=== PATIENT | male | born 1970 | race African-American/Black ===

== ENCOUNTER 2017-05-12 21:10 | Inpatient (IN) ==
[2017-05-12] MEDS ORDERED: LORazepam 2 MG/1 ML VIAL IV STA (22:49)
[2017-05-12] MEDS ORDERED: SODIUM CHLORIDE 0.9% 1,000 ML IV STA (22:49)
[2017-05-12 22:57] LABS: Basophils % 0.7 % (0.0-0.8); Eosinophils # 0.3 10*3/uL (0.0-0.87); Eosinophils % 8.2 % (0.00-10.9); Hematocrit 40.8 VOL% (42.0-52.0); Immature Granulocytes % 0.7 %; Immature Granulocytes Absolute 0.03 #; Lymphocytes # 2.2 10*3/uL (1.4-4.0); Mean Corpuscular HGB Conc 34.3 GM/DL (32-36); Mean Corpuscular Hemoglobin 33 PG (27-34); Mean Corpuscular Volume 95.1 FL (87-102); Mean Platelet Volume 10.2 FL (9.6-12.0); Monocytes # 0.6 10*3/uL (0.11-0.8); Monocytes % 13.3 % (1.7-12.7); Neutrophils % 24.1 % (38.7-73.9); Platelet Count 159 T/CUMM (130-400); Red Blood Count 4.29 MC/CUMM (3.8-5.5); Red Cell Distribution Width 13.3 % (9.3-17.3); White Blood Count 4.1 T/CUMM (4-12)
[2017-05-12] MEDS ORDERED: DIPH/TET/ACEL PERT BOOSTER VACCINE 0.5 ML VIAL IM ONE (22:57)
--- NOTE | 2017-05-12 23:07 | Emergency Department Note ---
Kali Dalal Brittany, am scribing for, and in the presence of, Glynn Christina MD 23:01. Carri Dalal Charles R, MD, personally performed the services described in this documentation, ascribed by Akilah Bass in my presence, and it is both accurate and complete . Arrival - Arrival Chief Complaint: Seizure Stated Complaint: FALL/SEIZURE/LAC TO LEFT SIDE OF FACE ED Nursing Triage Note: C/O Seizure activity witnessed by family member- Pt hit head and side of face on road while he was walking. Pt denies having a history of seizure. Family member reported that he had a seizure yesterday and was taken to [place]. Pt has no memory of either event. +abrasions and swelling noted to left side of face. Attempted to place c-collar at time of triage, but pt refused stating he didn't need it. Pt and family deny drug or alcohol use. Mode of Arrival: Ambulatory Limitations: No Limitations Source: Patient, Family Time Seen by Provider: 05/12/17 21:48 - History of Present Illness HPI Narrative: This is a 46 y/o black male,who presents to the ED S/P seizure which occurred yesterday. He denies having a medical Hx of seizures. Pt's family reports he fell today at 2130. Pt complains of a CROSS and neck pain. He states he normally drinks 6-8 32 oz beers a day, but in the past 2 days he stopped drinking "cold turkey". He states he feels very shaky. Pt has no other complaints/pain in the ED at this time. Pt denies a PMHx. Pt denies a surgical Hx. Pt denies a family medical Hx. Pt is a current every day smoker, and drinks frequently, but reports he quit 2 days ago. Onset (ago): hour(s) (Happened yesterday) Consistency: constant Severity: moderate Allergies/Adverse Reactions: Allergies Allergy/AdvReac Type Severity Reaction Status Date / Time No Known Allergies Allergy Verified 09/11/15 11:34 Home Medications: Home Medications Medication Instructions Recorded Confirmed Type No Known Home Medications [No 05/12/17 05/12/17 History Known Home Medications] Review of System - Review of System 12 point system: reviewed and no additional remarkable complaints except as stated - Review of System Review of Systems: Fall Musculoskeletal: Present: neck pain Neurological: Present: headache, other (Seizure) Medical,Surgical,& Family Hx - Social History Smoking Status: Never smoker Frequency of Alcohol Use: None Type of Drug Use: None Exam Vital Signs: Vital Signs Temperature 98.2 F 05/12/17 21:16 Pulse Rate 89 05/12/17 21:16 Respiratory Rate 18 05/12/17 21:16 Blood Pressure 167/103 05/12/17 21:16 O2 Sat by Pulse Oximetry 99 05/12/17 21:16 - General General appearance: alert, in no apparent distress - Head Head exam: Present: other (Abrasions to the face. ) - Eye Eye exam: Present: other (Black eye, left eyelid swollen ecchymosis, left subconjunctival hemorrhage) - ENT ENT exam: Present: normal exam, normal oropharynx, mucous membranes moist, TM's normal bilaterally, normal external ear exam - Neck Neck exam: Present: normal inspection, full ROM, trachea midline. Absent: tenderness, meningismus, lymphadenopathy, thyromegaly - Chest Chest inspection: Present: normal inspection, symmetric chest wall rise. Absent : tenderness, rash, abscess - Respiratory Respiratory exam: Present: rhonchi, wheezes (Bilateral wheezing) - Cardiovascular Cardiovascular exam: Present: regular rate, normal rhythm, normal heart sounds. Absent: murmur, rubs, gallop, clicks, JVD - Abdominal Exam Abdominal exam: Present: soft, normal bowel sounds. Absent: distention, tenderness, guarding, rebound, rigidity, organomegaly - Rectal Exam Rectal exam: Present: deferred - Extremities Exam Extremities exam: Present: normal capillary refill, other (Clubbing noted to the fingers). Absent: pedal edema, joint swelling, calf tenderness - Back Exam Back exam: Present: normal inspection, full ROM. Absent: tenderness, muscle spasm, rashes - Neurological Exam Neurological exam: Present: alert, oriented X3, CN II-XII intact, motor sensory deficit (Fine shake to the hands ) - Psychiatric Psychiatric exam: Present: normal affect, normal mood. Absent: depressed, agitated, anxious, flat affect, manic - Skin Skin exam: Present: warm, dry, intact, normal color. Absent: rash, cyanosis, diaphoresis, erythema, pallor, mottled Course - Consultations Consultation #1: Consult Dr. Rodríguez for multiple facial fractures. He states that nothing to do now for next 10-14 days will follow as consult Time: 00:17 Consultation #2: Hospitalist will admit patient Time: 01:45 Results - Labs CBC & BMP: 05/12/17 21:35 05/12/17 21:35 Lab Results: I have reviewed the patients labs Labs: Laboratory Tests 05/12/17 05/12/17 05/12/17 21:35 21:35 21:35 WBC 4.1 RBC 4.29 Hgb 14.0 Hct 40.8 L MCV 95.1 MCH 33 MCHC 34.3 RDW 13.3 Plt Count 159 MPV 10.2 Neut % (Auto) 24.1 L Lymph % (Auto) 53.0 Sibley % (Auto) 13.3 H Eos % (Auto) 8.2 Baso % (Auto) 0.7 Neut # (Auto) 1.0 L Lymph # (Auto) 2.2 Sibley # (Auto) 0.6 Eos # (Auto) 0.3 Baso # (Auto) 0.0 Total Counted 100 Immature Gran % 0.7 Nucleated RBC % 0.0 Immature Gran # 0.03 Segmented Neutrophils 23 L Lymphocytes 51 Monocytes 10 Eosinophils 15 H Basophils 1.0 H Nucleated RBCs # 0.00 Atypical Lymphocytes Few Platelet Estimate Normal Pappenheimer Bodies Knitting Machine Mechanic Sodium 135 L Potassium 3.6 Chloride 98 Carbon Dioxide 29 Anion Gap 11.6 BUN 11 Creatinine 1.20 GFR Calculation 87 BUN/Creatinine Ratio 9.00 Glucose 92 Calculated Osmolality 268.1 L Calcium 8.7 Magnesium 1.8 Total Bilirubin 0.40 AST 114 H ALT 99 H Alkaline Phosphatase 95 Ammonia Total Protein 8.4 H Albumin 4.3 Globulin 4.1 H Albumin/Globulin Ratio 1.0 L Prolactin 43.2 Urine Color Urine Appearance Urine pH Ur Specific [place] Urine Protein Urine Glucose (UA) Urine Ketones Urine Blood Urine Nitrate Urine Bilirubin Urine Urobilinogen Urine Leukocytes Urine RBC Urine WBC Urine Mucus Ur Culture Indicated? Urine Opiates Screen Ur Barbiturates Screen Ur Phencyclidine Scrn U Amphetamine/Methamph U Benzodiazepines Scrn U Cocaine Metab Screen U Cannabinoids Screen Serum Alcohol < 15 L 05/12/17 05/12/17 05/12/17 22:40 22:40 23:27 WBC RBC Hgb Hct MCV MCH MCHC RDW Plt Count MPV Neut % (Auto) Lymph % (Auto) Sibley % (Auto) Eos % (Auto) Baso % (Auto) Neut # (Auto) Lymph # (Auto) Sibley # (Auto) Eos # (Auto) Baso # (Auto) Total Counted Immature Gran % Nucleated RBC % Immature Gran # Segmented Neutrophils Lymphocytes Monocytes Eosinophils Basophils Nucleated RBCs # Atypical Lymphocytes Platelet Estimate Pappenheimer Bodies Sodium Potassium Chloride Carbon Dioxide Anion Gap BUN Creatinine GFR Calculation BUN/Creatinine Ratio Glucose Calculated Osmolality Calcium Magnesium Total Bilirubin AST ALT Alkaline Phosphatase Ammonia 31 Total Protein Albumin Globulin Albumin/Globulin Ratio Prolactin Urine Color Straw Urine Appearance Clear Urine pH 6.0 Ur Specific [place] 1.009 Urine Protein 30 Urine Glucose (UA) Negative Urine Ketones Negative Urine Blood Small Urine Nitrate Negative Urine Bilirubin Negative Urine Urobilinogen < 2.0 H Urine Leukocytes Negative Urine RBC 1 Urine WBC <1 Urine Mucus Occasional Ur Culture Indicated? Not indicated Urine Opiates Screen Negative Ur Barbiturates Screen Negative Ur Phencyclidine Scrn Negative U Amphetamine/Methamph Negative U Benzodiazepines Scrn Negative U Cocaine Metab Screen Negative U Cannabinoids Screen Negative Serum Alcohol Critical Care Time Critical Care Time: Yes Total Critical Care Time: 60 Disposition Clinical Impression: Post alcohol withdrawal seizures, Multiple facial bone fractures, Alcoholism / alcohol abuse, Acute alcohol withdrawal syndrome Case discussed with: patient, patient's family Disposition: Still a Patient Condition: Guarded Time of Disposition: 01:45
[2017-05-12 23:10] LABS: Alanine Aminotransferase 99 U/L (16-61); Albumin 4.3 G/DL (3.4-5.0); Alkaline Phosphatase 95 U/L (45-117); Aspartate Amino Transferase 114 U/L (0-37); Blood Urea Nitrogen 11 MG/DL (7-18); Calcium 8.7 MG/DL (8.5-10.1); Glucose 92 MG/DL (74-106); Magnesium 1.8 MG/DL (1.8-2.4); Osmolality,Calculated 268.1 MOS/KG (273-304); Potassium 3.6 MMOL/L (3.5-5.1); Sodium 135 MMOL/L (136-145); Total Protein 8.4 G/DL (6.4-8.3)
[2017-05-12] MEDS ORDERED: LORazepam 2 MG/1 ML VIAL ONE (23:17)
[2017-05-12 23:37] LABS: Atypical Lymphocytes Few; Eosinophils 15 % (0-10); Lymphocytes 51 % (20-55); Platelet Estimate Normal; Segmented Neutrophils 23 % (50-85); Total Cells Counted 100
[2017-05-12 23:44] LABS: Apearance,Urine CLEAR (Clear); Bilirubin,Urine Negative (Negative); Blood, Urine Small mg/dL (Negative); Glucose,Urine (UA) Negative (Negative); Ketones,Urine Negative (Negative); Mucus,Urine Occasional /LPF (Occasional); Nitrite,Urine Negative (Negative); Protein,Urine 30 MG/DL; RBC,Urine 1 /HPF (0-4); Urine Color Straw (Yellow); Urine Specific Gravity 1.009 (1.001-1.035); Urine Urobilinogen < 2.0 EU/DL (0.2-1.0); WBC,Urine <1 /HPF (0-6)
[2017-05-12 23:53] LABS: Barbiturates Screen,Urine Negative (Negative); Benzodiazepines Screen,Urine Negative (Negative); Cannabinoid Screen,Urine Negative (Negative); Opiate Screen,Urine Negative (Negative); Phencyclidine Screen,Urine Negative (Negative)
[2017-05-13] MEDS ORDERED: DIPH/TET/ACEL PERT BOOSTER VACCINE 0.5 ML VIAL IM ONE (00:18)
[2017-05-13] MEDS ORDERED: LORazepam 2 MG/1 ML VIAL ONE (01:55)
[2017-05-13] MEDS ORDERED: LORazepam 2 MG/1 ML VIAL IV STA (01:59)
[2017-05-13] MEDS ORDERED: MORPHINE 2 MG/1 ML SYRINGE IV PRN (03:18)
[2017-05-13] MEDS ORDERED: BISACODYL 5 MG TABLET PO PRN (03:18)
[2017-05-13] MEDS ORDERED: ONDANSETRON 4 MG/2 ML VIAL IV PRN (03:18)
[2017-05-13] MEDS ORDERED: ALBUTEROL/IPRATROPIUM 3 ML NEB RESP TX PRN (03:18)
[2017-05-13] MEDS ORDERED: ACETAMINOPHEN 325 MG TABLET PO PRN (03:18)
--- NOTE | 2017-05-13 03:24 | Hospitalist History & Physical ---
Assessment and Plan - Time spent with patient Time spent discussing smoking cessation with patient: 3 to 10 minutes (1) DTs (delirium tremens) Status: Acute Current Visit: Yes (2) Fracture of other specified skull and facial bones, left side, initial encounter for closed fracture Status: Acute Current Visit: Yes (3) Seizure Status: Acute Current Visit: Yes (4) Uncontrolled hypertension Status: Acute Current Visit: Yes (5) Alcoholism /alcohol abuse Status: Chronic Assessment and plan: Plan: We will monitor in ICU, benzodiazepines as needed for alcohol withdrawal Blood pressure control Supportive care for pain with his facial fractures, ENT to evaluate Current Visit: Yes History of Present Illness Chief complaint: Witnessed seizure and fall History of present illness: Mr. Gonzalez is a 46 year old male with high blood pressure, long-standing alcohol abuse who quit drinking cold turkey on Saturday. Since then he has been tremulous and had a witnessed seizure around 9:30 PM and fell to the ground hitting the left side of his face resulting in multiple facial fractures. ER physician discussed the case with ENT. The patient reports heavy consumption of beer and occasional liquor. He does have left facial pain he rates a 7 out of 10 at worst, relieved with pain medication in the ER. He has not seized in the emergency room. He will be admitted to the ICU for alcohol withdrawal/DTs. ENT will evaluate his facial fractures Home Medications Medication Instructions Recorded Confirmed Type No Known Home Medications [No 05/12/17 05/12/17 History Known Home Medications] Allergies Allergy/AdvReac Type Severity Reaction Status Date / Time No Known Allergies Allergy Verified 09/11/15 11:34 Medical,Surgical,& Family Hx - Medical History Cardio: History of: Hypertension Endocrine: No history of: Diabetes Mellitus (NIDDM) Respiratory: No history of: COPD - Surgical History Additional Surgical History: Denies previous surgery - Family History Family History: Reports;: Family Hypertension - Social History Smoking Status: Current every day smoker Have you smoked in the last 12 months: Yes Time spent discussing smoking cessation with patient: 3 to 10 minutes Frequency of Alcohol Use: Frequently (six to eight 32 ounce beers per day with occasional liquor) Type of Drug Use: None Marital Status: Unknown Functional capacity: independent ambulation Review of systems: A 12 point review of systems is negative except as specified in the HPI Exam - Constitutional Vitals: Period Temp Pulse Resp BP Sys/Boudreaux Pulse Ox Last 24 Hr 98.2 F 89 18 167/103 99 Exam: EXAM: CONSTITUTIONAL: non toxic, NAD HEENT: NC, large ecchymosis and swelling over the left eye and periorbital excoriation, subconjunctival hemorrhage, tenderness to palpation, OP benign, EVELIN, EOMI CV: RRR no m/g/r RESP: clear B/L, no w/r/r GI: abd soft, NT, ND, +bowel sounds INTEGUMENTARY: no lesions or rash EXTREMITIES: no c/c/e NEURO: no focal deficits PSYCH: Awake, alert, cooperative Results - Labs CBC & BMP: 05/12/17 21:35 05/12/17 21:35 Lab Results: I have reviewed the past 24 hour labs - EKG EKG shows: sinus rhythm - Diagnostic Findings Procedure: Chest x-ray: image reviewed by me, CT Abdomen and Pelvis: image reviewed by me, report reviewed by me, CT - chest: image reviewed by me, report reviewed by me, CT: image reviewed by me, report reviewed by me
[2017-05-13] MEDS ORDERED: SODIUM CHLORIDE 0.45% 1,000 ML IV SCH (03:30)
[2017-05-13] MEDS ORDERED: THIAMINE INJ 100 MG, FOLIC ACID INJ 1 MG, MAGNESIUM SULF INJ 2 GM, MULTIVITAMIN INJ 10 ... IV SCH (03:30)
--- NOTE | 2017-05-13 04:56 | EKG Report ---
Stationary ECG Study [facility] ER Test Date: 05/12/2017 11:46:42 PM Pat Name: BRIANNE BOTELLO Department: Room: 116 Gender: M Box Storage Worker: : 1970 Requested by: Glynn Sam Order Number: [id number] Reading MD: LORIE MOHR Intervals [place] Rate: 77 P: 47 W[place]: 169 QRS: 51 QRSD: 94 T: 50 QT: 389 QTc: 421 Interpretive Statements SINUS RHYTHM VOLTAGE CRITERIA FOR LVH, CONSIDER NORMAL VARIANT Electronically Signed On 05-13-17 10:35:36 CDT by LORIE MOHR [email or web address]
[2017-05-13 05:49] LABS: Basophils % 0.8 % (0.0-0.8); Eosinophils # 0.1 10*3/uL (0.0-0.87); Eosinophils % 3.7 % (0.00-10.9); Hematocrit 40.9 VOL% (42.0-52.0); Hemoglobin 14.6 GM/DL (14.0-18.0); Immature Granulocytes % 0.5 %; Immature Granulocytes Absolute 0.02 #; Lymphocytes # 1.2 10*3/uL (1.4-4.0); Mean Corpuscular HGB Conc 35.7 GM/DL (32-36); Mean Corpuscular Hemoglobin 33 PG (27-34); Mean Corpuscular Volume 92.7 FL (87-102); Monocytes # 0.4 10*3/uL (0.11-0.8); Monocytes % 10.6 % (1.7-12.7); Neutrophils % 52.4 % (38.7-73.9); Platelet Count 147 T/CUMM (130-400); Red Blood Count 4.41 MC/CUMM (3.8-5.5); Red Cell Distribution Width 13.2 % (9.3-17.3); White Blood Count 3.8 T/CUMM (4-12)
[2017-05-13] MEDS ORDERED: 1: THIAMINE INJ 100 MG, FOLIC ACID INJ 1 MG, MAGNESIUM SULF INJ 2 GM, MULTIVITAMIN INJ 1 IV SCH (06:00)
[2017-05-13] MEDS: chlordiazePOXIDE 25 MG CAPSULE PO SCH ×4 (06:07→23:15)
[2017-05-13 06:16] LABS: Calcium 9.1 MG/DL (8.5-10.1); Magnesium 1.9 MG/DL (1.8-2.4); Osmolality,Calculated 266.1 MOS/KG (273-304); Potassium 3.8 MMOL/L (3.5-5.1)
--- NOTE | 2017-05-13 06:20 | CT Report ---
Exam: CT scan of brain without contrast Date: 05/12/2017 Indication: Seizure activity Comparison: None Patient's classification: Emergency department Technical: Images were obtained from the skull base to the vertex without the use of intravenous contrast. Dose reduction was performed with decreasing kv and mA and automated exposure Total DLP: 1639.6 mGy*cm Findings: The study was initially reviewed by [facility]. The brainstem, cerebellum and cerebral hemispheres are intact. The paranasal sinuses are demonstrated with traumatic injury over the left frontal region with air-fluid level in the left maxillary sinus and fractures of the left maxillary antrum with soft tissue contusion also noted The ventricles are located in normal position without midline shift or mass effect. The globes and sella are intact. The calvarium is unremarkable. Impression: 1. No acute hemorrhage infarction or mass effect intracranially. 2. Soft tissue injury over the left orbital region and fractures of the left maxillary antrum with fluid in the left maxillary sinus discussed separately with facial bone series PROCEDURE INTERPRETED AT [facility] DEPARTMENT OF RADIOLOGY Final Report Signed by: Dr. Clem Ugarte
--- NOTE | 2017-05-13 06:30 | CT Report ---
Exam:CT cervical spine wo con Date:05/12/2017 10:49 PM Indication: Fall neck injury pain Comparison: None Total DLP: 320.3 mGy*cm Technical: Sagittal axial and coronal imaging was available for review with out the use of intravenous contrast. Dose reduction was performed with decreasing kv and mA and automated exposure Findings: The study was initially reviewed by [facility]. 7 cervical vertebral bodies are demonstrated. Examination reveals attempted bridging syndesmophyte present C4-5 C5-6 with anterior and posterior spurring present. Disc space narrowing is present. Spurring is also present at C6-7 posteriorly. The vertebral body heights,, lamina, pedicles, and posterior elements are intact. The arch at C1 and C2 and odontoid process are intact. The neural foramina canals are unremarkable. No soft tissue abnormalities are demonstrated. Impression 1. No fracture or dislocation. 2. Degenerative spondylosis change of the cervical spine at C4-5 C5-6 and C6-7. PROCEDURE INTERPRETED AT [facility] DEPARTMENT OF RADIOLOGY Final Report Signed by: Dr. Clem Ugarte
--- NOTE | 2017-05-13 06:36 | CT Report ---
Exam: CT facial bones wo con Date: 05/12/2017 10:49 PM Comparison: None Indication: Status post fall facial trauma pain Total DLP: 1639.6 mGy*cm Technical: axial, sagittal and coronal images were obtained through the maxillofacial sinuses and bones without intravenous contrast Dose reduction was performed with decreasing kv and mA and automated exposure Findings: The study was initially reviewed by [facility]. The frontal sinuses are unremarkable. The maxillary sinuses are demonstrated with subtotal opacification left maxillary antrum. The right maxillary sinus is clear. Ethmoid sinuses are demonstrated with inflammation present in the left ethmoid air cells the right ethmoid air cells are clear The sphenoid sinuses are unremarkable. The ostiomeatal complex is narrowed on the left. The right ostiomeatal complex is patent. The nasal septum is midline without spur. The mastoid sinuses are unremarkable. The facial bones are demonstrated with a comminuted fracture posterior lateral wall of the left maxillary antrum with fracture of the anterior wall of left maxillary sinus. The medial wall the left maxillary sinus appears to have a small buckle fractures well. There is a fracture of the floor the left orbit with a small amount of air and buckle fracture extending into the posterior aspect of the floor of the orbit. The lateral wall the orbit is fractured with depression and some comminution. The superior wall the orbit appears intact. The medial wall appears intact. The exam reveals a buckle fracture of the left zygomatic arch present. The nasal bones are intact. Extensive soft tissue swelling over the left malar eminence present. Mild proptosis left orbit present. The right globe is unremarkable. No intraconal abnormalities present. Small amount air over the left lateral extraconal space Impression: 1. Soft tissue swelling over the left malar eminence 2. Multiple facial fractures involving the left zygomatic arch the anterior and posterior clements of the left maxillary sinus the floor the left orbit and the lateral wall of the left orbit. 3. Subtotal opacification left maxillary antrum and left ethmoid air cells PROCEDURE INTERPRETED AT [facility] DEPARTMENT OF RADIOLOGY Final Report Signed by: Dr. Clem Ugarte
--- NOTE | 2017-05-13 06:42 | CT Report ---
Exam:CT chest w con Date:05/13/2017 12:17 AM Indication: Chest pain trauma Comparison: None Technical: Images were obtained from the thoracic inlet through the lung bases with 100 cc of contrast. Axial sagittal and coronal imaging was available for review. Dose reduction was performed with decreasing kv and mA and automated exposure Total DLP: 628.8 mGy*cm Findings: The study was initially reviewed by [facility]. The thyroid gland, trachea and esophagus are unremarkable. The anterior middle and posterior mediastinum are intact. The heart and pulmonary artery are unremarkable. Aorta is unremarkable. The lungs are clear without infiltrates or effusions. Minimal basilar atelectatic changes are present. Right greater than left The bony structures are unremarkable. Impression: 1. Minimal basilar atelectatic change present. Exam: CT abdomen pelvis w con Date: 05/13/2017 12:17 AM Comparison: None Indication: Trauma pain Total DLP: As above mGy*cm Technical: Images were obtained from the lung bases to the iliac crest continuation through the pelvis with 100 cc of Omnipaque 350 with axial sagittal coronal imaging available for review. Dose reduction was performed with decreasing kv and mA and automated exposure Findings: Liver and Spleen: Minimal fatty infiltration of liver present spleen is unremarkable. Gallbladder and Pancreas: Gallbladder is contracted. The pancreas is unremarkable. Adrenals: Unremarkable Kidneys: Both kidneys are equally perfused and demonstrate no evidence for obstructive uropathy. Stomach: Incomplete distended with air-fluid and debris Retroperitoneum: No enlarged lymph nodes. Aorta and IVC: Minimal atherosclerotic plaque in the abdominal aorta and iliac vessels. No aneurysm noted. IVC is patent Bowel and Mesentery: There is no evidence for bowel obstruction. Minimal diverticular changes without diverticulitis or free fluid. No obvious evidence of appendicitis or mass lesions Pelvis: Bladder: Incompletely distended with fluid and contrast Minimal bladder wall thickening on the initial series Fluid: None Lymph nodes: No enlarged lymph nodes. Pelvic organs: Unremarkable Osseous structures: No suspicious appearing osseous abnormalities noted. Disc space narrowing at L5-S1. Impression: 1. No acute solid or visceral organ injury. 2. Minimal diverticulosis without diverticulitis 3. Minimal bladder wall thickening PROCEDURE INTERPRETED AT [facility] DEPARTMENT OF RADIOLOGY Final Report Signed by: Dr. Clem Ugarte
[2017-05-13] MEDS: hydrALAZINE 20 MG/1 ML VIAL IV PRN ×2 (06:57→13:10)
[2017-05-13] MEDS: PANTOPRAZOLE 40 MG TABLET PO SCH (08:35)
--- NOTE | 2017-05-13 17:23 | Consultation ---
Assessment and Plan - Time spent with patient Time spent with patient: Less than 30 minutes (1) Closed tripod fracture of zygomaticomaxillary complex with routine healing Status: Acute Assessment and plan: I recommend with the amount of swelling and the minimally displaced to nondisplaced fractures continued observation and possible secondary healing. I note no entrapment or functional impingement because of the fracture. He is more than welcome to follow-up as an outpatient and will continue to monitor this fracture but he most likely will not need open reduction internal fixation at this time. Thank you very much for this consultation I will remain available if there is any additional questions or concern Current Visit: Yes (2) Periorbital swelling Status: Acute Current Visit: Yes (3) Facial contusion Status: Acute Current Visit: Yes History of Present Illness - Data of Consult Patient: new to practice Consult date: 05/13/17 Requesting Physician: Alex Lindsay - Consult Narrative Reason for consult: Left facial fracture History of present illness: Mr. Gonzalez is a 46 year old male with left facial fracture consistent with a tripod fracture of unknown etiology/mechanism of action patient does report a seizure which could potentially describe the fall and subsequent fracture. Patient notes no double vision or difficulties. Does note some mild pain with biting down consistent with the fracture. Patient reports no instability of the midface or additional problems. CC: Alex Lindsay MD - Home Medications and Allergies Home Medications: Home Medications Medication Instructions Recorded Confirmed Type No Known Home Medications [No 05/12/17 05/12/17 History Known Home Medications] Allergies/Adverse Reactions: Allergies Allergy/AdvReac Type Severity Reaction Status Date / Time No Known Allergies Allergy Verified 09/11/15 11:34 12 point system: reviewed and no additional remarkable complaints except as stated Medical,Surgical,& Family Hx - Medical History Cardio: History of: Hypertension Neurology: No history of: Seizures Endocrine: No history of: Diabetes Mellitus (NIDDM) Respiratory: No history of: COPD - Family History Family History: Reports;: Family Hypertension - Social History Smoking Status: Current every day smoker Frequency of Alcohol Use: Frequently (six to eight 32 ounce beers per day with occasional liquor) Type of Drug Use: None Exam - Constitutional Vitals: Period Temp Pulse Resp BP Sys/Boudreaux Pulse Ox Last 24 Hr 98.2 F-99.6 F 76-102 10- 139-173/90-108 97-99 General appearance: normal weight, no acute distress - Head Head exam: Present: abrasion, contusion, hematoma - Eye Eye exam: Present: EOMI, periorbital swelling - ENT ENT exam: Present: normal exam, normal external ear exam, normal oropharynx - Expanded ENT Exam Ear exam: Present: TM's normal bilaterally Mouth exam: Present: moist Throat exam: Present: normal inspection - Neck Neck exam: Present: normal inspection - Respiratory Respiratory exam: Present: other (No shortness of breath or difficulty breathing ) - GI/Abdominal GI/Abdominal exam: Present: soft - Extremities Exam Extremities exam: Present: normal inspection, normal capillary refill - Neurological Exam Neurological exam: Present: alert, oriented X3, CN II-XII intact - Psychiatric Psychiatric exam: Present: normal affect, normal mood - Skin Skin exam: Present: normal color, warm Results - Labs CBC & BMP: 05/13/17 05:22 05/13/17 05:22 Lab Results: I have reviewed the past 24 hour labs - Diagnostic Findings Procedure: CT: pending, image reviewed by me, report reviewed by me (Left facial fractures consistent with a possible tripod fracture mildly displaced and nondisplaced fractures I agree with radiology interpretation)
[2017-05-13] MEDS: PROMETHAZINE 25 MG/1 ML VIAL IM PRN (20:01)
[2017-05-13] MEDS: LORazepam 2 MG/1 ML VIAL IV PRN (21:14)
[2017-05-13] MEDS ORDERED: LORazepam 2 MG/1 ML VIAL IV ONE ×2 (22:04→23:45)
[2017-05-13] MEDS: ZIPRASIDONE 20 MG/1 ML VIAL IM PRN (23:20)
[2017-05-14] MEDS: LORazepam 2 MG/1 ML VIAL IV PRN ×5 (01:35→23:16)
[2017-05-14 03:26] LABS: Apearance,Urine Slightly Hazy (Clear); Bilirubin,Urine Negative (Negative); Blood, Urine Moderate mg/dL (Negative); Glucose,Urine (UA) Negative (Negative); Ketones,Urine Negative (Negative); Nitrite,Urine Negative (Negative); Protein,Urine Negative; RBC,Urine 1 /HPF (0-4); Squamous Epithelial Cell,Urine Occasional /HPF (0-10); Urine Color Yellow (Yellow); Urine Specific Gravity 1.006 (1.001-1.035); Urine Urobilinogen < 2.0 EU/DL (0.2-1.0); WBC,Urine <1 /HPF (0-6)
[2017-05-14] MEDS: ZIPRASIDONE 20 MG/1 ML VIAL IM PRN ×2 (04:20→21:57)
[2017-05-14] MEDS: chlordiazePOXIDE 25 MG CAPSULE PO SCH ×5 (06:11→23:31)
[2017-05-14] MEDS: THIAMINE INJ 100 MG, FOLIC ACID INJ 1 MG, MAGNESIUM SULF INJ 2 GM, MULTIVITAMIN INJ 10 ... IV SCH (08:21)
[2017-05-14] MEDS: PANTOPRAZOLE 40 MG TABLET PO SCH (10:25)
--- NOTE | 2017-05-14 11:10 | Hospitalist Progress Note ---
Assessment and Plan (1) DTs (delirium tremens) Status: Acute Assessment and plan: The patient will continue supportive care and intensive care unit with increased dose of benzodiazepine to reduce tremulousness. Will reevaluate tomorrow and consider transfer to the floor if tremulousness has improved. I coordinated care with Dr. Quiroga today. The patient does not require facial surgery. Current Visit: Yes (2) Fracture of other specified skull and facial bones, left side, initial encounter for closed fracture Status: Acute Current Visit: Yes Hospitalist: Subjective Interval history: The patient had worsening symptoms of alcohol withdrawal last night and required progressive larger doses of benzodiazepine to reduce his tremulousness. The patient is resting quietly at present appears appropriately sedated. Exam - Constitutional Vitals: Period Temp Pulse Resp BP Sys/[place] Pulse Ox Last 24 Hr 98 F-99.2 F 85-155 10- 103-163/73-105 95-129 Exam: Constitutional System: Mild distress. No tremulousness. Sleeping Head: The patient has swelling and tenderness of the left face consistent with facial fracture Ears, Nose and Throat System: No evidence of Otitis or Mastoiditis. No epistaxis or discharge Eyes System: Pupils equal, round, and reactive. Extraocular muscles intact. Neck: Supple, without adenopathy, No jugular venous distention. No thyromegaly , neck mass, or prior surgery apparent. Respiratory System: Chest clear to auscultation. Cardiovascular System: Heart with regular rate and rhythm. No murmur. - Expanded ENT Exam Mouth exam: Present: moist Throat exam: Present: normal inspection Results - Labs CBC & BMP: 05/13/17 05:22 05/13/17 05:22 Lab Results: I have reviewed the past 24 hour labs
[2017-05-14] MEDS: hydrALAZINE 20 MG/1 ML VIAL IV PRN (18:10)
[2017-05-15] MEDS: PROMETHAZINE 25 MG/1 ML VIAL IM PRN (01:50)
[2017-05-15] MEDS: LORazepam 2 MG/1 ML VIAL IV PRN ×5 (01:50→17:16)
[2017-05-15] MEDS ORDERED: DIAZEPAM 5 MG TABLET PO ONE (01:53)
[2017-05-15] MEDS ORDERED: SODIUM CHLORIDE 0.9% 1,000 ML IV SCH ×2 (02:00→02:30)
[2017-05-15] MEDS: CLINDAMYCIN 150 MG CAPSULE PO SCH ×4 (02:18→23:20)
[2017-05-15 04:49] LABS: Calcium 8.8 MG/DL (8.5-10.1); Magnesium 2.4 MG/DL (1.8-2.4); Osmolality,Calculated 273.5 MOS/KG (273-304); Potassium 3.5 MMOL/L (3.5-5.1)
[2017-05-15] MEDS: chlordiazePOXIDE 25 MG CAPSULE PO SCH ×4 (06:03→23:21)
[2017-05-15] MEDS: ZIPRASIDONE 20 MG/1 ML VIAL IM PRN ×3 (06:59→20:31)
[2017-05-15] MEDS: PANTOPRAZOLE 40 MG TABLET PO SCH (09:02)
[2017-05-15] MEDS: THIAMINE INJ 100 MG, FOLIC ACID INJ 1 MG, MAGNESIUM SULF INJ 2 GM, MULTIVITAMIN INJ 10 ... IV SCH (09:03)
--- NOTE | 2017-05-15 09:33 | Hospitalist Progress Note ---
Assessment and Plan (1) DTs (delirium tremens) Status: Acute Assessment and plan: The patient will continue supportive care and intensive care unit with increased dose of benzodiazepine to reduce tremulousness. The patient is presently without tremulousness and ready for transfer to the floor. Current Visit: Yes (2) Fracture of other specified skull and facial bones, left side, initial encounter for closed fracture Status: Acute Current Visit: Yes Hospitalist: Subjective Interval history: The patient was admitted to the hospital after sustaining fracture to the left zygoma. The patient was evaluated by Dr. luo but no surgery was recommended. The patient is a daily drinker at home. After admission to the hospital the patient had onset of delirium tremens. The patient is improving with benzodiazepine sedation. The patient is now ready for transfer to the floor. Exam - Constitutional Vitals: Period Temp Pulse Resp BP Sys/[place] Pulse Ox Last 24 Hr 98 F-101 F 89-150 15-28 120-180/86-115 95-100 Exam: Constitutional System: Mild distress. No tremulousness. Sleeping Head: The patient has swelling and tenderness of the left face consistent with facial fracture Ears, Nose and Throat System: No evidence of Otitis or Mastoiditis. No epistaxis or discharge Eyes System: Pupils equal, round, and reactive. Extraocular muscles intact. Neck: Supple, without adenopathy, No jugular venous distention. No thyromegaly , neck mass, or prior surgery apparent. Respiratory System: Chest clear to auscultation. Cardiovascular System: Heart with regular rate and rhythm. No murmur. - Expanded ENT Exam Mouth exam: Present: moist Throat exam: Present: normal inspection Results - Labs CBC & BMP: 05/13/17 05:22 05/15/17 03:44 Lab Results: I have reviewed the past 24 hour labs
[2017-05-15] MEDS: hydrALAZINE 20 MG/1 ML VIAL IV PRN (10:43)
[2017-05-16] MEDS: LORazepam 2 MG/1 ML VIAL IV PRN ×2 (01:48→08:17)
[2017-05-16] MEDS: CLINDAMYCIN 150 MG CAPSULE PO SCH ×4 (03:47→20:52)
[2017-05-16] MEDS: ZIPRASIDONE 20 MG/1 ML VIAL IM PRN (04:45)
[2017-05-16 05:38] LABS: Basophils % 0.2 % (0.0-0.8); Eosinophils # 0.4 10*3/uL (0.0-0.87); Eosinophils % 4.7 % (0.00-10.9); Hematocrit 38.7 VOL% (42.0-52.0); Hemoglobin 13.1 GM/DL (14.0-18.0); Immature Granulocytes % 0.7 %; Immature Granulocytes Absolute 0.06 #; Lymphocytes # 1.6 10*3/uL (1.4-4.0); Lymphocytes % 19.8 % (21.2-54.2); Mean Corpuscular HGB Conc 33.9 GM/DL (32-36); Mean Corpuscular Hemoglobin 32 PG (27-34); Mean Corpuscular Volume 94.9 FL (87-102); Mean Platelet Volume 10.9 FL (9.6-12.0); Monocytes # 0.7 10*3/uL (0.11-0.8); Monocytes % 8.6 % (1.7-12.7); Neutrophils # 5.4 10*3/uL (1.4-7.4); Platelet Count 132 T/CUMM (130-400); Red Blood Count 4.08 MC/CUMM (3.8-5.5); Red Cell Distribution Width 13.5 % (9.3-17.3); White Blood Count 8.1 T/CUMM (4-12)
[2017-05-16 06:05] LABS: Magnesium 2.4 MG/DL (1.8-2.4); Osmolality,Calculated 278.1 MOS/KG (273-304); Potassium 3.7 MMOL/L (3.5-5.1)
[2017-05-16] MEDS: chlordiazePOXIDE 25 MG CAPSULE PO SCH ×3 (08:16→17:12)
[2017-05-16] MEDS: PANTOPRAZOLE 40 MG TABLET PO SCH (08:17)
[2017-05-16] MEDS: THIAMINE INJ 100 MG, FOLIC ACID INJ 1 MG, MAGNESIUM SULF INJ 2 GM, MULTIVITAMIN INJ 10 ... IV SCH (09:33)
--- NOTE | 2017-05-16 10:17 | Hospitalist Progress Note ---
Assessment and Plan (1) Closed tripod fracture of zygomaticomaxillary complex with routine healing Status: Acute Current Visit: Yes (2) DTs (delirium tremens) Status: Acute Assessment and plan: CIWA precautions remain in progress; no seizure activity noted thus far. We will monitor closely Current Visit: Yes (3) Uncontrolled hypertension Status: Acute Assessment and plan: Blood pressures are stable; continue current regimen as ordered. Current Visit: Yes Hospitalist: Subjective Interval history: Patient seen and examined; no significant overnight events. Chart reviewed. Exam - Constitutional Vitals: Period Temp Pulse Resp BP Sys/Boudreaux Pulse Ox Last 24 Hr 97.6 F-99.1 F 91-117 16-22 123-184/70-100 96-100 General appearance: normal weight, no acute distress - Head Head exam: Present: normal inspection, normocephalic - Eye Eye exam: Present: EOMI, periorbital swelling (Left periorbital swelling) Pupils: Present: EVELIN, normal accommodation - ENT ENT exam: Present: normal exam, normal external ear exam, normal oropharynx - Expanded ENT Exam Ear exam: Present: TM's normal bilaterally Mouth exam: Present: moist Throat exam: Present: normal inspection - Neck Neck exam: Present: normal inspection. Absent: lymphadenopathy, meningismus, tenderness, thyromegaly - Respiratory Respiratory exam: Present: clear to auscultation bilaterally. Absent: rales, rhonchi, stridor, wheezes - Cardiovascular Cardiovascular exam: Present: regular rate and rhythm. Absent: carotid bruit, diastolic murmur, gallop, JVD, rubs, systolic murmur - GI/Abdominal GI/Abdominal exam: Present: normal bowel sounds, soft - Extremities Exam Extremities exam: Present: normal inspection, normal capillary refill, full ROM. Absent: edema - Back Exam Back exam: Present: normal inspection - Neurological Exam Neurological exam: Present: alert, oriented X3, CN II-XII intact - Psychiatric Psychiatric exam: Present: normal affect, normal mood - Skin Skin exam: Present: normal color, warm, dry Results - Labs CBC & BMP: 05/16/17 05:01 05/16/17 05:01 Lab Results: I have reviewed the past 24 hour labs
[2017-05-17] MEDS: chlordiazePOXIDE 25 MG CAPSULE PO SCH ×2 (00:20→05:45)
[2017-05-17] MEDS: CLINDAMYCIN 150 MG CAPSULE PO SCH ×2 (05:45→09:30)
[2017-05-17 06:36] LABS: Basophils % 0.3 % (0.0-0.8); Eosinophils # 0.4 10*3/uL (0.0-0.87); Eosinophils % 5.6 % (0.00-10.9); Hematocrit 35.8 VOL% (42.0-52.0); Hemoglobin 12.2 GM/DL (14.0-18.0); Immature Granulocytes Absolute 0.07 #; Lymphocytes # 2.1 10*3/uL (1.4-4.0); Lymphocytes % 30.2 % (21.2-54.2); Mean Corpuscular HGB Conc 34.1 GM/DL (32-36); Mean Corpuscular Hemoglobin 32 PG (27-34); Mean Corpuscular Volume 94.5 FL (87-102); Mean Platelet Volume 10.6 FL (9.6-12.0); Monocytes # 0.8 10*3/uL (0.11-0.8); Monocytes % 11.5 % (1.7-12.7); Neutrophils # 3.6 10*3/uL (1.4-7.4); Neutrophils % 51.4 % (38.7-73.9); Platelet Count 152 T/CUMM (130-400); Red Blood Count 3.79 MC/CUMM (3.8-5.5); Red Cell Distribution Width 13.3 % (9.3-17.3)
[2017-05-17 07:11] LABS: Albumin 3.3 G/DL (3.4-5.0); Bilirubin,Total 0.8 MG/DL (0.2-1.0); Calcium 8.4 MG/DL (8.5-10.1); Magnesium 2.3 MG/DL (1.8-2.4); Osmolality,Calculated 279.3 MOS/KG (273-304); Phosphorous 2.8 MG/DL (2.5-4.9); Potassium 3.4 MMOL/L (3.5-5.1); Total Protein 6.6 G/DL (6.4-8.3)
[2017-05-17] MEDS ORDERED: POTASSIUM CHLORIDE RIDER 10 MEQ in PREMIX 1 EACH IV PRN (07:55)
[2017-05-17 08:30] VITALS: BP 127/81
[2017-05-17] MEDS ORDERED: POTASSIUM CHLORIDE 20 MEQ TABLET PO ONE (08:36)
--- NOTE | 2017-05-17 08:43 | Discharge Summary ---
<Betsy Mccarthyda - Last Filed: 05/17/17 08:28> Hospital Course - Hospital Course Hospital Course: This is a very poor and unfortunate 46-year-old male that presented to the ED at [facility] on May 12, 2017 for the evaluation of seizure activity. The patient has a medical history significant for alcohol addiction and nicotine addiction. At the time of presentation, the patient reported no surgical history. At the time of ED presentation, the patient was grossly altered. His family was present at bedside; they served as historians. The family reported the onset of the above symptoms 1 day prior to presentation. Apparently, the family reported that the patient is a heavy drinker and recently stopped "cold turkey" 2 days prior to presentation. They reported that the patient drinks constantly daily normally 6-8 32 ounce beers daily. In addition, the family reported that the patient had a seizure the day prior to presentation, he presented to the ED at [place]. He was evaluated and subsequently discharged. They report today that the patient had another episode of seizure activity in which he fell striking his head and face on the ground. They became alarmed and brought the patient to the ED for further evaluation. At the time of ED presentation, the patient was unaware of the presenting events. He was able to answer simple questions, however he denied a history of seizures. He was grossly hypertensive with a blood pressure noted at 167/103. He had multiple abrasions to his face and profound ecchymosis and subconjunctival hemorrhage to his left eye. CT face reported soft tissue swelling over the left malar eminence, multiple facial fractures involving the left zygomatic arch the left anterior and posterior clements of the left maxillary sinus the floor of the left orbit and the lateral wall of the left orbit and subtotal opacification left maxillary antrum and left ethmoid air cells. CT head reported no acute hemorrhage infarction or mass-effect intracranially. CT abdomen and pelvis reported minimal basilar atelectatic changes. The patient was subsequently admitted to the hospitalist services for continuation of care. The patient was obviously displaying signs and symptoms of acute alcohol withdrawal and was placed in critical care for close observation. The patient was admitted to critical care. Alcohol withdrawal protocol was initiated. Otolaryngology consultation was requested. The patient was evaluated; however no need for immediate surgical intervention was deemed necessary. The patient was placed on empiric antibiotics. Benzodiazepines, vitamin replacement, antihypertensive agent, and anti-seizure agents were initiated. The patient's condition slowly improved. On May 15, 2017, the patient was transferred to the general medical surgical floor for continuation of care. The patient's condition has remained stable. He has experienced no significant overnight events. Today, we feel that he is indeed appropriate for discharge to follow-up with his primary care physician and otolaryngology as directed. We have spoke to patient in great detail regarding the need to refrain from alcohol use. The acknowledges understanding of the instructions and reports that he wants to stop eventually. On the date of discharge, the chest is clear and heart has regular rate and rhythm. 34 minutes were required for evaluating the patient and preparing the discharge documentation. Diagnosis - Discharge Diagnosis (1) Closed tripod fracture of zygomaticomaxillary complex with routine healing Status: Acute (2) DTs (delirium tremens) Status: Acute (3) Uncontrolled hypertension Status: Acute Discharge Plan - Discharge Data Disposition: Disch To Home/Self Care - Discharge Medications New HYDROcodone/ACETAMIN 7.5-325 [[place] 7.5-325] 1 tablet PO Q6HR #30 tablet chlordiazePOXIDE [Librium] 25 mg PO TID #30 capsule Clindamycin Cap [Cleocin Cap] 450 mg PO TID #20 capsule - Follow Up or Referral - Forms/Instructions Exam - Constitutional Vitals: Period Temp Pulse Resp BP Sys/B[place]reaux Pulse Ox Last 24 Hr 97.3 F-98.9 F 72-112 18-96 122-147/74-107 99-99 Discharge Results Procedures and tests throughout hospitalization: Pending Orders 05/18/17 04:00 CBC [Comp Blood Count Auto Diff] IN AM CMP [Comprehensive Metabolic Panel] IN AM Magnesium IN AM Phosphorous IN AM Labs on day of discharge: Labs from last 24 hours 05/17/17 05/17/17 06:14 06:14 WBC 7.0 RBC 3.79 L Hgb 12.2 L Hct 35.8 L MCV 94.5 MCH 32 MCHC 34.1 RDW 13.3 Plt Count 152 MPV 10.6 Neut % (Auto) 51.4 Lymph % (Auto) 30.2 Lee % (Auto) 11.5 Eos % (Auto) 5.6 Baso % (Auto) 0.3 Neut # (Auto) 3.6 Lymph # (Auto) 2.1 Lee # (Auto) 0.8 Eos # (Auto) 0.4 Baso # (Auto) 0.0 Immature Gran % 1.0 Nucleated RBC % 0.0 Immature Gran # 0.07 Nucleated RBCs # 0.00 Sodium 141 Potassium 3.4 L Chloride 107 Carbon Dioxide 24 Anion Gap 13.4 BUN 9 Creatinine 0.80 GFR Calculation 127 BUN/Creatinine Ratio 11.00 Glucose 97 Calculated Osmolality 279.3 Calcium 8.4 L Phosphorus 2.8 Magnesium 2.3 Total Bilirubin 0.80 AST 33 ALT 37 Alkaline Phosphatase 58 Total Protein 6.6 Albumin 3.3 L Globulin 3.3 Albumin/Globulin Ratio 1.0 L DS: Provider Date of admission: 05/13/17 03:18 Primary care physician: . No PCP Attending physician on admission: Manjit Astudillo DO Consults: 05/13/17 05:18 Consult to Physician [CONS] Routine Comment: Left-sided facial fracture(s) status post fall Consulting Provider: Hebert Quiroga Consulting Provider Notified: Yes When should Consulting Provider be notified: In am Consult to Specialist Group: ENT Person Notified: MARIBELL Date Notified: 05/13/17 Time Notified: 08:40 05/13/17 06:21 Consult to Pharmacy [CONS] Routine Reason for Pharmacy Consult: Other Comment: Continue banana bag daily Discharging clinician: Aly Mccarthy CNP <Alex Lindsay - Last Filed: 05/17/17 09:56> Hospital Course - Time spent with patient Time with patient DS: Greater than 30 minutes Diagnosis - Discharge Diagnosis (1) DTs (delirium tremens) Status: Resolved (2) Fracture of other specified skull and facial bones, left side, initial encounter for closed fracture Status: Acute Discharge Plan - Discharge Data Condition at Discharge: Stable Discharge Diet: other (Soft diet) Activity: resume usual activities as tolerated
[2017-05-17] MEDS: PANTOPRAZOLE 40 MG TABLET PO SCH (09:30)
[2017-05-17] MEDS: THIAMINE INJ 100 MG, FOLIC ACID INJ 1 MG, MAGNESIUM SULF INJ 2 GM, MULTIVITAMIN INJ 10 ... IV SCH (09:31)
== END 2017-05-17 11:40 | disposition home or self-care (01) | DRG 897 ==
LOC: N.ED 21:10 → N.EDINP 05-13 03:18 → SUATTDRO 05-13 03:18 → N.ICU 05-13 04:39 → N.5E 05-15 16:04
PROVIDERS: ADMIT Internal Medicine; ATTEND Internal Medicine

== ENCOUNTER 2018-02-24 13:59 | Inpatient (IN) ==
[2018-02-24] MEDS ORDERED: LORazepam 2 MG/1 ML VIAL ONE (17:48)
[2018-02-24 17:52] LABS: Basophils % 0.7 % (0.0-0.8); Hematocrit 40.8 VOL% (42.0-52.0); Hemoglobin 14.9 GM/DL (14.0-18.0); Immature Granulocytes % 0.7 %; Immature Granulocytes Absolute 0.04 #; Lymphocytes # 1.3 10*3/uL (1.4-4.0); Lymphocytes % 22.2 % (21.2-54.2); Mean Corpuscular HGB Conc 36.5 GM/DL (32-36); Mean Corpuscular Hemoglobin 34 PG (27-34); Mean Corpuscular Volume 92.3 FL (87-102); Mean Platelet Volume 9.4 FL (9.6-12.0); Monocytes # 0.8 10*3/uL (0.11-0.8); Neutrophils # 3.7 10*3/uL (1.4-7.4); Neutrophils % 62.4 % (38.7-73.9); Platelet Count 270 T/CUMM (130-400); Red Blood Count 4.42 MC/CUMM (3.8-5.5); Red Cell Distribution Width 13.9 % (9.3-17.3); White Blood Count 5.9 T/CUMM (4-12)
[2018-02-24] MEDS ORDERED: LORazepam 2 MG/1 ML VIAL IV STA (17:57)
[2018-02-24 18:16] LABS: Alanine Aminotransferase 69 U/L (16-61); Albumin 5.1 G/DL (3.4-5.0); Alkaline Phosphatase 91 U/L (45-117); Aspartate Amino Transferase 100 U/L (0-37); Blood Urea Nitrogen 12 MG/DL (7-18); Calcium 9.4 MG/DL (8.5-10.1); Glucose 94 MG/DL (74-106); Lactic Acid 4.3 MMOL/L (0.4-2.0); Osmolality,Calculated 265.4 MOS/KG (273-304); Potassium 3.6 MMOL/L (3.5-5.1); Sodium 133 MMOL/L (136-145); Total Protein 9.8 G/DL (6.4-8.3); Troponin I Only < 0.015 NG/ML (0.00-0.045)
[2018-02-24 19:41] LABS: Apearance,Urine CLEAR (Clear); Bilirubin,Urine Negative (Negative); Blood, Urine Moderate mg/dL (Negative); Glucose,Urine (UA) Negative (Negative); Granular Casts,Urine 1 /LPF (0-1); Hyaline Casts,Urine 25 /LPF (0-3); Ketones,Urine Negative (Negative); Mucus,Urine Occasional /LPF (Occasional); Nitrite,Urine Negative (Negative); Protein,Urine Negative; Urine Color Yellow (Yellow); Urine Specific Gravity 1.005 (1.001-1.035); Urine Urobilinogen < 2.0 EU/DL (0.2-1.0); WBC,Urine <1 /HPF (0-6)
[2018-02-24 19:55] LABS: Barbiturates Screen,Urine Negative (Negative); Benzodiazepines Screen,Urine Negative (Negative); Cannabinoid Screen,Urine Negative (Negative); Opiate Screen,Urine Negative (Negative); Phencyclidine Screen,Urine Negative (Negative)
[2018-02-24] MEDS ORDERED: SODIUM CHLORIDE 0.9% 1,000 ML IV STA (21:04)
[2018-02-24] MEDS ORDERED: ONDANSETRON 4 MG/2 ML VIAL IV PRN (21:13)
[2018-02-24] MEDS ORDERED: LORazepam 2 MG/1 ML VIAL IV PRN (21:13)
[2018-02-24] MEDS ORDERED: MAGNESIUM SULF RIDER 2 GM in PREMIX 1 EACH IV ONE (21:20)
[2018-02-24] MEDS ORDERED: SODIUM CHLORIDE 0.9% 1,000 ML IV ONE (21:21)
[2018-02-24] MEDS: SODIUM CHLORIDE 0.9% 1,000 ML IV SCH (23:30)
[2018-02-24] MEDS ORDERED: MAGNESIUM SULF RIDER 50 ML IV ONE (23:59)
[2018-02-25 03:53] LABS: Albumin 4.2 G/DL (3.4-5.0); Calcium 8.6 MG/DL (8.5-10.1); Osmolality,Calculated 270.1 MOS/KG (273-304); Potassium 3.6 MMOL/L (3.5-5.1); Total Protein 7.6 G/DL (6.4-8.3)
[2018-02-25 04:00] LABS: Folate 12.8 NG/ML (5.4-24.0)
[2018-02-25] MEDS ORDERED: PANTOPRAZOLE 40 MG TABLET PO ONE (08:38)
[2018-02-25] MEDS: PANTOPRAZOLE 40 MG TABLET PO SCH (08:55)
[2018-02-25] MEDS: THIAMINE 100 MG TABLET PO SCH (09:17)
[2018-02-25] MEDS: MULTIVITAMIN (CENTRUM) TABLET PO SCH (09:17)
[2018-02-25] MEDS: FOLIC ACID 1 MG TABLET PO SCH (09:18)
[2018-02-25] MEDS: SODIUM CHLORIDE 0.9% 1,000 ML IV SCH ×3 (09:26→17:45)
[2018-02-26] MEDS: SODIUM CHLORIDE 0.9% 1,000 ML IV SCH ×2 (01:31→08:42)
[2018-02-26] MEDS: FOLIC ACID 1 MG TABLET PO SCH (08:42)
[2018-02-26] MEDS: PANTOPRAZOLE 40 MG TABLET PO SCH (08:42)
[2018-02-26] MEDS: MULTIVITAMIN (CENTRUM) TABLET PO SCH (08:42)
[2018-02-26] MEDS: THIAMINE 100 MG TABLET PO SCH (08:42)
[2018-02-26 11:57] VITALS: BP 153/96
== END 2018-02-26 13:52 | disposition home or self-care (01) | DRG 897 ==
LOC: N.ED 13:59 → N.EDINP 21:13 → N.5E 02-25 12:20
PROVIDERS: ADMIT Internal Medicine; ATTEND Internal Medicine